=== PATIENT | female | born 1960 | race Caucasian/White ===

== ENCOUNTER → 2020-05-08 | Day surgery (SDC) | payer MEDICARE ==
[~2020-05-08] VITALS: Ht 162.6 cm; Wt 73.9 kg
[~2020-05-08] MED LIST: DIOVAN 80 MG TA80 MG PO; HYDROCODON-ACE1 EAC6 PO; PEPCID20 MG PO; ULTRAM50 MG PO; ZOLOFT50 MG PO
[2020-05-08 08:40] LABS: HEMOGLOBIN 15.4 gm/dl (12.3-15.3); RED BLOOD COUNT 4.81 M/UL (4.00-5.10); WHITE BLOOD COUNT 8.5 K/UL (4.5-11.0)
[2020-05-08 09:20] LABS: BUN/CREATININE RATIO 20 (0-10)
== END | disposition home or self-care (01) ==
LOC: OR 08:03
PROVIDERS: Orthopaedic Surgery
PROC: 0PSH04Z Reposition Right Radius with Internal Fixation Device, Open Approach (ICD-10-PCS; 2020-05-08)
PROC: 3E0T3BZ Introduction of Anesthetic Agent into Peripheral Nerves and Plexi, Percutaneous Approach (ICD-10-PCS; principal; 2020-05-08 13:15)
DX: S52.301A Unspecified fracture of shaft of right radius, initial encounter for closed fracture (principal); S52.611A Displaced fracture of right ulna styloid process, initial encounter for closed fracture; G89.18 Other acute postprocedural pain; I10 Essential (primary) hypertension; K21.9 Gastro-esophageal reflux disease without esophagitis; Z79.891 Long term (current) use of opiate analgesic; Z79.1 Long term (current) use of non-steroidal anti-inflammatories (NSAID); Z79.899 Other long term (current) drug therapy; Z88.0 Allergy status to penicillin; Z20.822 Contact with and (suspected) exposure to COVID-19; X58.XXXA Exposure to other specified factors, initial encounter
CPT/HCPCS: 36415; 71045; 73110; 76000; 80048; 85027; 93005; C1713; J0592; J1100; J2001; J2405; J2704; J2795; J3010; J7120